=== PATIENT | male | born 1985 | race Caucasian/White ===

== ENCOUNTER 2020-06-06 07:34 | Emergency (ER) | payer SELFPAY ==
[~2020-06-06] VITALS: Ht 190.5 cm; Wt 91.6 kg
[2020-06-06 07:54] VITALS: BP 128/79
[2020-06-06] MEDS ORDERED: SODIUM CHLORIDE FLUSH 10ML SYR IVF ONE (08:00)
--- NOTE | 2020-06-06 08:02 | NUR ---
3 SIDED OCCLUSIVE DRSG PLACED, NO SUBQ EMPHYSEMA NOTED, LUNGS CTAB. PAIN MEDS GIVEN BY [facility] AT BEDSIDE. TDAP LAST MONTH. BEDSIDE US BY SAUL MORALEZ, CXR CANCELED BY SAUL MORALEZ. CARE TRANSFERRED TO [facility], PAPERWROK TO [facility].
--- NOTE | 2020-06-06 08:06 | NUR ---
REPORT TO TANA CANDELARIA RN AT [facility].
== END 2020-06-06 12:23 | disposition short-term general hospital (02) ==
LOC: ED 08:10
DX: S11.81XA Laceration without foreign body of other specified part of neck, initial encounter (principal); S21.112A Laceration without foreign body of left front wall of thorax without penetration into thoracic cavity, initial encounter; R06.02 Shortness of breath; X99.1XXA Assault by knife, initial encounter; Y93.89 Activity, other specified; Y92.410 Unspecified street and highway as the place of occurrence of the external cause; Y99.8 Other external cause status
CPT/HCPCS: 99291